=== PATIENT | female | born 1960 | race Caucasian/White ===

== ENCOUNTER 2023-02-23 11:39 | Inpatient (IN) | payer MEDICARE, OTHER ==
[~2023-02-23] VITALS: Ht 152.4 cm; Wt 54.9 kg
[2023-02-24] MEDS ORDERED: MAGNESIUM HYDROXIDE 30 ML UDC PO PRN (01:30)
[2023-02-24] MEDS ORDERED: Z GUARD REMEDY 4 OZ OINT TP PRN (01:30)
[2023-02-24] MEDS ORDERED: MAG HYDROX/AL HYDROX/SIMETH 30 ML UDC PO PRN (01:30)
[2023-02-24] MEDS ORDERED: ZOLPIDEM TARTRATE 5 MG TABLET PO PRN (01:30)
[2023-02-24] MEDS ORDERED: AMPI500C11 PO (01:37)
[2023-02-24] MEDS ORDERED: BUSP5TAB3 PO (01:39)
[2023-02-24] MEDS ORDERED: BENZ0.5T43 PO (01:41)
[2023-02-24] MEDS ORDERED: HALO5TAB PO ×2 (01:43→01:44)
[2023-02-24] MEDS ORDERED: ENOX40DI9 SQ (01:43)
[2023-02-24] MEDS ORDERED: HYDR12.55 PO (01:45)
[2023-02-24] MEDS ORDERED: HYDR50TA61 PO (01:47)
[2023-02-24] MEDS ORDERED: SITA100T PO (01:47)
[2023-02-24] MEDS ORDERED: NITR100C6 PO (01:48)
[2023-02-24] MEDS ORDERED: OLAN5TAB3 PO (01:50)
[2023-02-24] MEDS ORDERED: POTA20TA83 PO (01:53)
[2023-02-24] MEDS ORDERED: FLUO20TA28 PO (01:53)
[2023-02-24 01:54] VITALS: BP 118/74; TEMP 98; O2SAT 98
[2023-02-24] MEDS ORDERED: TRAZ-257 PO (01:55)
[2023-02-24] MEDS ORDERED: LISI20TA30 PO (01:56)
[2023-02-24] MEDS ORDERED: BLOOD SUGAR DIAGNOSTIC 1 EACH STRIP IN ONE (02:00)
[2023-02-24] MEDS ORDERED: INSU100V9 (02:01)
[2023-02-24] MEDS ORDERED: INSU100V7 SQ (02:01)
[2023-02-24] MEDS ORDERED: DEXTROSE 50%-WATER 50 ML DISP.SYRIN IV PRN (04:30)
[2023-02-24 08:00] VITALS: BP 97/76; TEMP 97.6; O2SAT 98
[2023-02-24] MEDS: BLOOD SUGAR DIAGNOSTIC 1 EACH STRIP IN SCH ×4 (08:00→23:01)
[2023-02-24] MEDS: INSULIN REGULAR, HUMAN 100 UNIT/ML 3 ML VIAL SQ PRN (08:43)
[2023-02-24] MEDS: LISINOPRIL (20MG) 20 MG TABLET PO SCH (09:29)
[2023-02-24] MEDS: HYDROCHLOROTHIAZIDE 25 MG TABLET PO SCH (09:30)
[2023-02-24] MEDS: BENZTROPINE MESYLATE (1 MG) 1 MG TABLET PO SCH ×2 (10:46→17:56)
[2023-02-24] MEDS: HALOPERIDOL 5 MG TABLET PO SCH ×2 (10:46→17:00)
[2023-02-24 16:00] VITALS: BP 82/49; TEMP 97.8; O2SAT 99
[2023-02-24] MEDS ORDERED: IV NS 0.9% 1,000 ML IV ONE (17:30)
[2023-02-24 18:46] VITALS: BP 116/63
[2023-02-24 18:50] VITALS: BP 116/63
[2023-02-24 20:00] VITALS: BP 98/64; TEMP 97.8; O2SAT 99
[2023-02-24] MEDS: TRAZODONE 50 MG TABLET PO SCH (22:03)
[2023-02-25 07:53] LABS: BASOPHILS % (AUTO) 0.5 % (0.0-2.0); EOSINOPHILS # (AUTO) 0.1 K/uL (0.0-0.7); EOSINOPHILS % (AUTO) 2.1 % (0.0-6.0); HEMATOCRIT 35 % (33-45); HEMOGLOBIN 12.1 g/dL (11.5-14.8); LYMPHOCYTES # (AUTO) 2.6 K/uL (0.8-4.8); LYMPHOCYTES % (AUTO) 59.7 % (20.0-44.0); MEAN CORPUSCULAR HEMOGLOBIN 30 PG (26.0-33.0); MEAN CORPUSCULAR HGB CONC 35 g/dl (31.0-36.0); MEAN CORPUSCULAR VOLUME 87 fL (82-100); MONOCYTES # (AUTO) 0.4 K/uL (0.1-1.30); MONOCYTES % (AUTO) 8.1 % (2.0-12.0); NEUTROPHILS # (AUTO) 1.3 K/uL (1.8-8.9); NEUTROPHILS % (AUTO) 29.6 % (43.0-81.0); PLATELET COUNT (AUTO) 148 K/uL (150-450); RED BLOOD CELL COUNT(AUTO) 4.01 MIL/uL (4.0-5.2); RED CELL DISTRIBUTION WIDTH 14.5 % (11.5-15.0); WHITE BLOOD COUNT (AUTO) 4.4 K/uL (4.3-11.0)
[2023-02-25 08:00] VITALS: BP 96/60; TEMP 98.4; O2SAT 94
[2023-02-25 08:03] LABS: CALCIUM, SERUM 8.9 mg/dL (8.5-10.1); CREATININE 0.6 mg/dL (0.6-1.3); POTASSIUM 3.5 mmol/L (3.5-5.1)
[2023-02-25] MEDS: BLOOD SUGAR DIAGNOSTIC 1 EACH STRIP IN SCH ×4 (08:15→22:01)
[2023-02-25] MEDS: LISINOPRIL (20MG) 20 MG TABLET PO SCH (08:15)
[2023-02-25] MEDS: HYDROCHLOROTHIAZIDE 25 MG TABLET PO SCH (08:16)
[2023-02-25 08:17] LABS: THYROID STIMULATING HORMONE 2.051 uIU/mL (0.358-3.74)
[2023-02-25] MEDS: BENZTROPINE MESYLATE (1 MG) 1 MG TABLET PO SCH ×2 (08:18→16:14)
[2023-02-25] MEDS: GLUCERNA SHAKE 237 ML CAN PO SCH ×2 (08:18→16:14)
[2023-02-25] MEDS: HALOPERIDOL 5 MG TABLET PO SCH ×2 (08:18→16:14)
[2023-02-25 16:00] VITALS: BP 93/52; TEMP 97.5; O2SAT 96
[2023-02-25] MEDS: MEGESTROL ACETATE SUSP 400 MG/10 ML UDC PO SCH (17:55)
[2023-02-25 18:25] VITALS: BP 105/69
[2023-02-25 20:00] VITALS: BP 105/57; TEMP 98.1; O2SAT 96
[2023-02-25] MEDS: INSULIN REGULAR, HUMAN 100 UNIT/ML 3 ML VIAL SQ PRN (22:08)
[2023-02-25] MEDS: TRAZODONE 50 MG TABLET PO SCH (22:09)
[2023-02-26] MEDS: BLOOD SUGAR DIAGNOSTIC 1 EACH STRIP IN SCH ×4 (07:30→21:11)
[2023-02-26 08:00] VITALS: BP 116/86; TEMP 97.9; O2SAT 95
[2023-02-26] MEDS: HYDROCHLOROTHIAZIDE 25 MG TABLET PO SCH (09:28)
[2023-02-26] MEDS: MEGESTROL ACETATE SUSP 400 MG/10 ML UDC PO SCH (09:28)
[2023-02-26] MEDS: HALOPERIDOL 5 MG TABLET PO SCH ×2 (09:28→16:06)
[2023-02-26] MEDS: GLUCERNA SHAKE 237 ML CAN PO SCH ×2 (09:29→16:06)
[2023-02-26] MEDS: LISINOPRIL (20MG) 20 MG TABLET PO SCH (09:29)
[2023-02-26] MEDS: BENZTROPINE MESYLATE (1 MG) 1 MG TABLET PO SCH ×2 (09:31→16:29)
[2023-02-26] MEDS: INSULIN REGULAR, HUMAN 100 UNIT/ML 3 ML VIAL SQ PRN ×4 (09:37→21:40)
[2023-02-26] MEDS: LORAZEPAM 0.5 MG TABLET PO PRN ×2 (12:39→20:31)
[2023-02-26 16:00] VITALS: BP 127/60; TEMP 98.2; O2SAT 97
[2023-02-26] MEDS: CYANOCOBALAMIN 500 MCG TABLET PO SCH (16:28)
[2023-02-26 20:25] VITALS: BP 124/78; TEMP 98.1; O2SAT 98
[2023-02-26] MEDS: TRAZODONE 50 MG TABLET PO SCH (21:11)
[2023-02-26] MEDS: SIMVASTATIN 10 MG TABLET PO SCH (21:12)
[2023-02-27] MEDS: LORAZEPAM 0.5 MG TABLET PO PRN ×3 (03:22→20:51)
[2023-02-27 07:29] LABS: FOLIC ACID 10.2 ng/mL (>3.0)
[2023-02-27 08:00] VITALS: BP 137/78; TEMP 98.1; O2SAT 98
[2023-02-27] MEDS: BLOOD SUGAR DIAGNOSTIC 1 EACH STRIP IN SCH ×4 (08:18→21:21)
[2023-02-27] MEDS: HALOPERIDOL 5 MG TABLET PO SCH ×2 (08:24→16:13)
[2023-02-27] MEDS: CYANOCOBALAMIN 500 MCG TABLET PO SCH (08:24)
[2023-02-27] MEDS: BENZTROPINE MESYLATE (1 MG) 1 MG TABLET PO SCH ×2 (08:24→16:14)
[2023-02-27] MEDS: MEGESTROL ACETATE SUSP 400 MG/10 ML UDC PO SCH (08:25)
[2023-02-27] MEDS: LISINOPRIL (20MG) 20 MG TABLET PO SCH (08:25)
[2023-02-27] MEDS: HYDROCHLOROTHIAZIDE 25 MG TABLET PO SCH (08:29)
[2023-02-27] MEDS: GLUCERNA SHAKE 237 ML CAN PO SCH ×2 (08:31→16:13)
[2023-02-27] MEDS: INSULIN REGULAR, HUMAN 100 UNIT/ML 3 ML VIAL SQ PRN ×3 (14:36→21:42)
[2023-02-27 16:00] VITALS: BP 123/73; TEMP 98.7; O2SAT 99
[2023-02-27 20:21] VITALS: BP 117/64; TEMP 97.8; O2SAT 96
[2023-02-27] MEDS: SIMVASTATIN 10 MG TABLET PO SCH (21:08)
[2023-02-27] MEDS: TRAZODONE 50 MG TABLET PO SCH (21:16)
[2023-02-28] MEDS: BLOOD SUGAR DIAGNOSTIC 1 EACH STRIP IN SCH ×4 (07:55→22:09)
[2023-02-28 08:00] VITALS: BP 140/87; TEMP 97.6; O2SAT 98
[2023-02-28] MEDS: GLUCERNA SHAKE 237 ML CAN PO SCH ×2 (08:00→17:47)
[2023-02-28] MEDS: MEGESTROL ACETATE SUSP 400 MG/10 ML UDC PO SCH (09:12)
[2023-02-28] MEDS: HYDROCHLOROTHIAZIDE 25 MG TABLET PO SCH (09:13)
[2023-02-28] MEDS: BENZTROPINE MESYLATE (1 MG) 1 MG TABLET PO SCH ×2 (09:13→17:00)
[2023-02-28] MEDS: CYANOCOBALAMIN 500 MCG TABLET PO SCH (09:13)
[2023-02-28] MEDS: LISINOPRIL (20MG) 20 MG TABLET PO SCH (09:13)
[2023-02-28] MEDS: HALOPERIDOL 5 MG TABLET PO SCH ×3 (09:13→17:00)
[2023-02-28 15:30] VITALS: BP 90/63; TEMP 97.5; O2SAT 96
[2023-02-28 16:00] VITALS: BP 90/63; TEMP 97.5; O2SAT 96
[2023-02-28] MEDS: INSULIN REGULAR, HUMAN 100 UNIT/ML 3 ML VIAL SQ PRN ×2 (18:00→22:11)
[2023-02-28] MEDS ORDERED: IV NS 0.9% 500 ML IV ONE (19:00)
[2023-02-28 21:30] VITALS: BP 89/55; TEMP 98.3; O2SAT 98
[2023-02-28] MEDS: SIMVASTATIN 10 MG TABLET PO SCH (21:30)
[2023-02-28] MEDS: TRAZODONE 50 MG TABLET PO SCH (21:30)
[2023-02-28] MEDS ORDERED: IV NS 0.9% 250 ML IV ONE (21:39)
[2023-03-01] MEDS: BLOOD SUGAR DIAGNOSTIC 1 EACH STRIP IN SCH ×4 (07:51→21:30)
[2023-03-01 08:00] VITALS: BP 122/56; TEMP 97.8; O2SAT 98
[2023-03-01] MEDS: BENZTROPINE MESYLATE (1 MG) 1 MG TABLET PO SCH ×2 (08:41→17:33)
[2023-03-01] MEDS: HYDROCHLOROTHIAZIDE 25 MG TABLET PO SCH (08:41)
[2023-03-01] MEDS: CYANOCOBALAMIN 500 MCG TABLET PO SCH (08:41)
[2023-03-01] MEDS: MEGESTROL ACETATE SUSP 400 MG/10 ML UDC PO SCH (08:41)
[2023-03-01] MEDS: HALOPERIDOL 5 MG TABLET PO SCH ×3 (08:41→17:34)
[2023-03-01] MEDS: LISINOPRIL (20MG) 20 MG TABLET PO SCH (08:41)
[2023-03-01] MEDS: GLUCERNA SHAKE 237 ML CAN PO SCH ×2 (10:17→17:34)
[2023-03-01 16:00] VITALS: BP 90/54; TEMP 98.1; O2SAT 97
[2023-03-01] MEDS: INSULIN REGULAR, HUMAN 100 UNIT/ML 3 ML VIAL SQ PRN ×2 (17:38→21:39)
[2023-03-01 20:26] VITALS: BP 85/48; TEMP 99.5; O2SAT 96
[2023-03-01] MEDS: SIMVASTATIN 10 MG TABLET PO SCH (21:10)
[2023-03-01] MEDS: TRAZODONE 50 MG TABLET PO SCH (21:11)
[2023-03-01 23:28] VITALS: BP 86/51; TEMP 98.8; O2SAT 96
[2023-03-02 02:23] VITALS: BP 88/59; TEMP 98.8; O2SAT 96
[2023-03-02] MEDS: BLOOD SUGAR DIAGNOSTIC 1 EACH STRIP IN SCH ×4 (06:50→21:45)
[2023-03-02 08:00] VITALS: BP 100/55; TEMP 97.7; O2SAT 95
[2023-03-02] MEDS: HALOPERIDOL 5 MG TABLET PO SCH ×3 (08:20→16:25)
[2023-03-02] MEDS: MEGESTROL ACETATE SUSP 400 MG/10 ML UDC PO SCH (08:20)
[2023-03-02] MEDS: CYANOCOBALAMIN 500 MCG TABLET PO SCH (08:20)
[2023-03-02] MEDS: BENZTROPINE MESYLATE (1 MG) 1 MG TABLET PO SCH ×2 (08:23→16:25)
[2023-03-02] MEDS: HYDROCHLOROTHIAZIDE 25 MG TABLET PO SCH (08:30)
[2023-03-02] MEDS: LISINOPRIL (20MG) 20 MG TABLET PO SCH (08:30)
[2023-03-02] MEDS: GLUCERNA SHAKE 237 ML CAN PO SCH ×2 (09:21→16:25)
[2023-03-02] MEDS: ESCITALOPRAM OXALATE (10 MG) 10 MG TABLET PO SCH (10:08)
[2023-03-02] MEDS: INSULIN REGULAR, HUMAN 100 UNIT/ML 3 ML VIAL SQ PRN ×3 (12:37→21:47)
[2023-03-02 16:00] VITALS: BP 98/58; TEMP 98; O2SAT 95
[2023-03-02] MEDS: Z GUARD REMEDY 4 OZ OINT TP SCH (16:42)
[2023-03-02 20:00] VITALS: BP 102/62; TEMP 98.2; O2SAT 97
[2023-03-02] MEDS: TRAZODONE 50 MG TABLET PO SCH (21:48)
[2023-03-02] MEDS: SIMVASTATIN 10 MG TABLET PO SCH (21:48)
[2023-03-03] MEDS: BLOOD SUGAR DIAGNOSTIC 1 EACH STRIP IN SCH ×4 (07:01→21:39)
[2023-03-03 08:00] VITALS: BP 145/68; TEMP 97.7; O2SAT 96
[2023-03-03] MEDS: MEGESTROL ACETATE SUSP 400 MG/10 ML UDC PO SCH (08:20)
[2023-03-03] MEDS: CYANOCOBALAMIN 500 MCG TABLET PO SCH (08:21)
[2023-03-03] MEDS: HALOPERIDOL 5 MG TABLET PO SCH ×3 (08:21→16:35)
[2023-03-03] MEDS: HYDROCHLOROTHIAZIDE 25 MG TABLET PO SCH (08:21)
[2023-03-03] MEDS: ESCITALOPRAM OXALATE (10 MG) 10 MG TABLET PO SCH (08:21)
[2023-03-03] MEDS: BENZTROPINE MESYLATE (1 MG) 1 MG TABLET PO SCH ×2 (08:21→16:37)
[2023-03-03] MEDS: LISINOPRIL (20MG) 20 MG TABLET PO SCH (08:21)
[2023-03-03] MEDS: GLUCERNA SHAKE 237 ML CAN PO SCH ×2 (08:22→16:35)
[2023-03-03] MEDS: Z GUARD REMEDY 4 OZ OINT TP SCH ×2 (09:11→16:35)
[2023-03-03] MEDS: INSULIN REGULAR, HUMAN 100 UNIT/ML 3 ML VIAL SQ PRN ×3 (12:17→21:44)
[2023-03-03 16:00] VITALS: BP 110/61; TEMP 97.9; O2SAT 97
[2023-03-03 20:00] VITALS: BP 92/51; TEMP 97.9; O2SAT 95
[2023-03-03] MEDS: SIMVASTATIN 10 MG TABLET PO SCH (21:39)
[2023-03-03] MEDS: TRAZODONE 50 MG TABLET PO SCH (21:39)
[2023-03-04 08:00] VITALS: BP 109/61; TEMP 97.9; O2SAT 96
[2023-03-04] MEDS: BLOOD SUGAR DIAGNOSTIC 1 EACH STRIP IN SCH ×4 (08:00→21:50)
[2023-03-04] MEDS: GLUCERNA SHAKE 237 ML CAN PO SCH ×2 (08:00→16:00)
[2023-03-04] MEDS: MEGESTROL ACETATE SUSP 400 MG/10 ML UDC PO SCH (08:29)
[2023-03-04] MEDS: HALOPERIDOL 5 MG TABLET PO SCH ×3 (08:29→16:00)
[2023-03-04] MEDS: BENZTROPINE MESYLATE (1 MG) 1 MG TABLET PO SCH ×2 (08:29→16:00)
[2023-03-04] MEDS: CYANOCOBALAMIN 500 MCG TABLET PO SCH (08:29)
[2023-03-04] MEDS: ESCITALOPRAM OXALATE (10 MG) 10 MG TABLET PO SCH (08:30)
[2023-03-04] MEDS: LISINOPRIL (20MG) 20 MG TABLET PO SCH (08:31)
[2023-03-04] MEDS: HYDROCHLOROTHIAZIDE 25 MG TABLET PO SCH (08:31)
[2023-03-04] MEDS: Z GUARD REMEDY 4 OZ OINT TP SCH ×2 (08:36→16:02)
[2023-03-04 16:00] VITALS: BP 90/63; TEMP 97.8; O2SAT 100
[2023-03-04] MEDS: INSULIN REGULAR, HUMAN 100 UNIT/ML 3 ML VIAL SQ PRN ×2 (18:27→21:52)
[2023-03-04 20:00] VITALS: BP 105/52; TEMP 98.4; O2SAT 95
[2023-03-04] MEDS: TRAZODONE 50 MG TABLET PO SCH (21:08)
[2023-03-04] MEDS: SIMVASTATIN 10 MG TABLET PO SCH (21:08)
[2023-03-05] MEDS: BLOOD SUGAR DIAGNOSTIC 1 EACH STRIP IN SCH ×4 (07:30→21:58)
[2023-03-05 08:00] VITALS: BP 118/65; TEMP 97.8; O2SAT 97
[2023-03-05] MEDS: GLUCERNA SHAKE 237 ML CAN PO SCH ×2 (08:00→17:00)
[2023-03-05] MEDS: CYANOCOBALAMIN 500 MCG TABLET PO SCH (08:49)
[2023-03-05] MEDS: HALOPERIDOL 5 MG TABLET PO SCH ×3 (08:49→16:45)
[2023-03-05] MEDS: MEGESTROL ACETATE SUSP 400 MG/10 ML UDC PO SCH (08:49)
[2023-03-05] MEDS: HYDROCHLOROTHIAZIDE 25 MG TABLET PO SCH (08:50)
[2023-03-05] MEDS: LISINOPRIL (20MG) 20 MG TABLET PO SCH (08:51)
[2023-03-05] MEDS: ESCITALOPRAM OXALATE (10 MG) 10 MG TABLET PO SCH (08:51)
[2023-03-05] MEDS: BENZTROPINE MESYLATE (1 MG) 1 MG TABLET PO SCH ×2 (08:55→17:59)
[2023-03-05] MEDS: Z GUARD REMEDY 4 OZ OINT TP SCH ×2 (08:56→16:45)
[2023-03-05 15:59] VITALS: BP 120/65; TEMP 98.1; O2SAT 95
[2023-03-05 20:18] VITALS: BP 147/81; TEMP 98.1; O2SAT 98
[2023-03-05] MEDS: SIMVASTATIN 10 MG TABLET PO SCH (21:55)
[2023-03-05] MEDS: TRAZODONE 50 MG TABLET PO SCH (21:55)
[2023-03-05] MEDS: INSULIN REGULAR, HUMAN 100 UNIT/ML 3 ML VIAL SQ PRN (21:58)
[2023-03-06 08:00] VITALS: BP 106/54; TEMP 98.8; O2SAT 98
[2023-03-06] MEDS: GLUCERNA SHAKE 237 ML CAN PO SCH ×2 (08:00→17:00)
[2023-03-06] MEDS: BLOOD SUGAR DIAGNOSTIC 1 EACH STRIP IN SCH ×4 (08:25→21:13)
[2023-03-06] MEDS: MEGESTROL ACETATE SUSP 400 MG/10 ML UDC PO SCH (08:31)
[2023-03-06] MEDS: ESCITALOPRAM OXALATE (10 MG) 10 MG TABLET PO SCH (08:32)
[2023-03-06] MEDS: LISINOPRIL (20MG) 20 MG TABLET PO SCH (08:32)
[2023-03-06] MEDS: CYANOCOBALAMIN 500 MCG TABLET PO SCH (08:32)
[2023-03-06] MEDS: HYDROCHLOROTHIAZIDE 25 MG TABLET PO SCH (08:33)
[2023-03-06] MEDS: HALOPERIDOL 5 MG TABLET PO SCH ×3 (08:33→17:47)
[2023-03-06] MEDS: Z GUARD REMEDY 4 OZ OINT TP SCH ×2 (09:32→17:47)
[2023-03-06] MEDS: BENZTROPINE MESYLATE (1 MG) 1 MG TABLET PO SCH ×2 (09:32→17:47)
[2023-03-06 16:00] VITALS: BP 100/54; TEMP 98.4; O2SAT 99
[2023-03-06 19:43] VITALS: BP 111/71; TEMP 98.3; O2SAT 98
[2023-03-06] MEDS: SIMVASTATIN 10 MG TABLET PO SCH (21:06)
[2023-03-06] MEDS: TRAZODONE 50 MG TABLET PO SCH (21:06)
[2023-03-06] MEDS: INSULIN REGULAR, HUMAN 100 UNIT/ML 3 ML VIAL SQ PRN (21:50)
[2023-03-07 08:00] VITALS: BP 99/59; TEMP 97.7; O2SAT 98
[2023-03-07] MEDS: MEGESTROL ACETATE SUSP 400 MG/10 ML UDC PO SCH (08:52)
[2023-03-07] MEDS: BLOOD SUGAR DIAGNOSTIC 1 EACH STRIP IN SCH ×4 (08:52→21:57)
[2023-03-07] MEDS: ESCITALOPRAM OXALATE (10 MG) 10 MG TABLET PO SCH (08:53)
[2023-03-07] MEDS: HALOPERIDOL 5 MG TABLET PO SCH ×3 (08:53→16:31)
[2023-03-07] MEDS: BENZTROPINE MESYLATE (1 MG) 1 MG TABLET PO SCH ×2 (08:53→16:31)
[2023-03-07] MEDS: CYANOCOBALAMIN 500 MCG TABLET PO SCH (08:53)
[2023-03-07] MEDS: HYDROCHLOROTHIAZIDE 25 MG TABLET PO SCH (08:53)
[2023-03-07] MEDS: LISINOPRIL (20MG) 20 MG TABLET PO SCH (08:54)
[2023-03-07] MEDS: GLUCERNA SHAKE 237 ML CAN PO SCH ×2 (08:56→16:31)
[2023-03-07] MEDS: Z GUARD REMEDY 4 OZ OINT TP SCH ×2 (09:05→16:31)
[2023-03-07 16:00] VITALS: BP 97/57; TEMP 97.6; O2SAT 98
[2023-03-07 20:13] VITALS: BP 105/61; TEMP 99.1; O2SAT 98
[2023-03-07] MEDS: TRAZODONE 50 MG TABLET PO SCH (21:48)
[2023-03-07] MEDS: INSULIN REGULAR, HUMAN 100 UNIT/ML 3 ML VIAL SQ PRN (21:59)
[2023-03-07] MEDS: SIMVASTATIN 10 MG TABLET PO SCH (22:05)
[2023-03-08] MEDS: BLOOD SUGAR DIAGNOSTIC 1 EACH STRIP IN SCH ×4 (06:55→21:22)
[2023-03-08 08:00] VITALS: BP 100/68; TEMP 97.9; O2SAT 98
[2023-03-08] MEDS: GLUCERNA SHAKE 237 ML CAN PO SCH ×2 (08:00→16:25)
[2023-03-08] MEDS: BENZTROPINE MESYLATE (1 MG) 1 MG TABLET PO SCH ×2 (08:42→16:27)
[2023-03-08] MEDS: CYANOCOBALAMIN 500 MCG TABLET PO SCH (08:42)
[2023-03-08] MEDS: HYDROCHLOROTHIAZIDE 25 MG TABLET PO SCH (08:42)
[2023-03-08] MEDS: LISINOPRIL (20MG) 20 MG TABLET PO SCH (08:42)
[2023-03-08] MEDS: ESCITALOPRAM OXALATE (10 MG) 10 MG TABLET PO SCH (08:42)
[2023-03-08] MEDS: HALOPERIDOL 5 MG TABLET PO SCH ×3 (08:43→16:24)
[2023-03-08] MEDS: MEGESTROL ACETATE SUSP 400 MG/10 ML UDC PO SCH (08:43)
[2023-03-08] MEDS: Z GUARD REMEDY 4 OZ OINT TP SCH ×2 (08:43→16:25)
[2023-03-08 16:00] VITALS: BP 107/53; TEMP 98.7; O2SAT 97
[2023-03-08] MEDS: INSULIN REGULAR, HUMAN 100 UNIT/ML 3 ML VIAL SQ PRN ×2 (18:00→21:36)
[2023-03-08 20:15] VITALS: BP 96/53; TEMP 98.2; O2SAT 98
[2023-03-08] MEDS: TRAZODONE 50 MG TABLET PO SCH (21:13)
[2023-03-08] MEDS: SIMVASTATIN 10 MG TABLET PO SCH (21:15)
[2023-03-09] MEDS: BLOOD SUGAR DIAGNOSTIC 1 EACH STRIP IN SCH ×4 (07:46→22:17)
[2023-03-09 08:00] VITALS: BP 112/59; TEMP 98.1; O2SAT 98
[2023-03-09] MEDS: GLUCERNA SHAKE 237 ML CAN PO SCH ×2 (08:59→17:15)
[2023-03-09] MEDS: LISINOPRIL (20MG) 20 MG TABLET PO SCH (09:00)
[2023-03-09] MEDS: HYDROCHLOROTHIAZIDE 25 MG TABLET PO SCH (09:00)
[2023-03-09] MEDS: HALOPERIDOL 5 MG TABLET PO SCH ×3 (09:00→16:13)
[2023-03-09] MEDS: BENZTROPINE MESYLATE (1 MG) 1 MG TABLET PO SCH ×2 (09:00→16:13)
[2023-03-09] MEDS: ESCITALOPRAM OXALATE (10 MG) 10 MG TABLET PO SCH (09:00)
[2023-03-09] MEDS: MEGESTROL ACETATE SUSP 400 MG/10 ML UDC PO SCH (09:00)
[2023-03-09] MEDS: Z GUARD REMEDY 4 OZ OINT TP SCH ×2 (09:03→16:21)
[2023-03-09] MEDS: CYANOCOBALAMIN 500 MCG TABLET PO SCH (09:03)
[2023-03-09 16:00] VITALS: BP 103/67; TEMP 98.6; O2SAT 98
[2023-03-09 20:00] VITALS: BP 132/61; TEMP 98.7; O2SAT 100
[2023-03-09] MEDS: SIMVASTATIN 10 MG TABLET PO SCH (22:13)
[2023-03-09] MEDS: TRAZODONE 50 MG TABLET PO SCH (22:13)
[2023-03-09] MEDS: INSULIN REGULAR, HUMAN 100 UNIT/ML 3 ML VIAL SQ PRN (22:23)
[2023-03-10] MEDS: BLOOD SUGAR DIAGNOSTIC 1 EACH STRIP IN SCH ×4 (07:29→22:00)
[2023-03-10 08:00] VITALS: BP 107/70; TEMP 98.6; O2SAT 99
[2023-03-10] MEDS: GLUCERNA SHAKE 237 ML CAN PO SCH ×2 (08:39→17:05)
[2023-03-10] MEDS: CYANOCOBALAMIN 500 MCG TABLET PO SCH (08:40)
[2023-03-10] MEDS: ESCITALOPRAM OXALATE (10 MG) 10 MG TABLET PO SCH (08:40)
[2023-03-10] MEDS: HYDROCHLOROTHIAZIDE 25 MG TABLET PO SCH (08:40)
[2023-03-10] MEDS: MEGESTROL ACETATE SUSP 400 MG/10 ML UDC PO SCH (08:40)
[2023-03-10] MEDS: BENZTROPINE MESYLATE (1 MG) 1 MG TABLET PO SCH ×2 (08:40→16:24)
[2023-03-10] MEDS: HALOPERIDOL 5 MG TABLET PO SCH ×3 (08:40→16:24)
[2023-03-10] MEDS: LISINOPRIL (20MG) 20 MG TABLET PO SCH (08:41)
[2023-03-10] MEDS: Z GUARD REMEDY 4 OZ OINT TP SCH ×2 (09:01→16:26)
[2023-03-10 16:00] VITALS: BP 112/48; TEMP 98.4; O2SAT 97
[2023-03-10 20:00] VITALS: BP 113/63; TEMP 98; O2SAT 96
[2023-03-10] MEDS: SIMVASTATIN 10 MG TABLET PO SCH (21:43)
[2023-03-10] MEDS: TRAZODONE 50 MG TABLET PO SCH (21:43)
[2023-03-11] MEDS: BLOOD SUGAR DIAGNOSTIC 1 EACH STRIP IN SCH ×4 (07:26→21:36)
[2023-03-11 08:00] VITALS: BP 110/60; TEMP 98.5; O2SAT 97
[2023-03-11] MEDS: GLUCERNA SHAKE 237 ML CAN PO SCH ×2 (08:41→17:20)
[2023-03-11] MEDS: ESCITALOPRAM OXALATE (10 MG) 10 MG TABLET PO SCH (08:41)
[2023-03-11] MEDS: CYANOCOBALAMIN 500 MCG TABLET PO SCH (08:43)
[2023-03-11] MEDS: HALOPERIDOL 5 MG TABLET PO SCH ×3 (08:43→16:22)
[2023-03-11] MEDS: LISINOPRIL (20MG) 20 MG TABLET PO SCH (08:43)
[2023-03-11] MEDS: HYDROCHLOROTHIAZIDE 25 MG TABLET PO SCH (08:43)
[2023-03-11] MEDS: MEGESTROL ACETATE SUSP 400 MG/10 ML UDC PO SCH (08:43)
[2023-03-11] MEDS: BENZTROPINE MESYLATE (1 MG) 1 MG TABLET PO SCH ×2 (08:44→16:22)
[2023-03-11] MEDS: Z GUARD REMEDY 4 OZ OINT TP SCH ×2 (09:18→16:23)
[2023-03-11 16:00] VITALS: BP 126/58; TEMP 97.4; O2SAT 95
[2023-03-11 20:00] VITALS: BP 101/70; TEMP 98.1; O2SAT 97
[2023-03-11] MEDS: SIMVASTATIN 10 MG TABLET PO SCH (21:29)
[2023-03-11] MEDS: TRAZODONE 50 MG TABLET PO SCH (21:29)
[2023-03-11] MEDS: INSULIN REGULAR, HUMAN 100 UNIT/ML 3 ML VIAL SQ PRN (21:47)
[2023-03-12] MEDS: BLOOD SUGAR DIAGNOSTIC 1 EACH STRIP IN SCH ×4 (07:30→21:14)
[2023-03-12] MEDS: GLUCERNA SHAKE 237 ML CAN PO SCH ×2 (07:44→16:03)
[2023-03-12 08:00] VITALS: BP 102/67; TEMP 97.6; O2SAT 98
[2023-03-12] MEDS: ESCITALOPRAM OXALATE (10 MG) 10 MG TABLET PO SCH (08:18)
[2023-03-12] MEDS: HALOPERIDOL 5 MG TABLET PO SCH ×3 (08:18→16:05)
[2023-03-12] MEDS: HYDROCHLOROTHIAZIDE 25 MG TABLET PO SCH (08:19)
[2023-03-12] MEDS: LISINOPRIL (20MG) 20 MG TABLET PO SCH (08:19)
[2023-03-12] MEDS: MEGESTROL ACETATE SUSP 400 MG/10 ML UDC PO SCH (08:19)
[2023-03-12] MEDS: CYANOCOBALAMIN 500 MCG TABLET PO SCH (08:20)
[2023-03-12] MEDS: BENZTROPINE MESYLATE (1 MG) 1 MG TABLET PO SCH ×2 (08:30→16:20)
[2023-03-12] MEDS: Z GUARD REMEDY 4 OZ OINT TP SCH ×2 (09:56→16:04)
[2023-03-12 16:00] VITALS: BP 105/61; TEMP 98.4; O2SAT 98
[2023-03-12 20:36] VITALS: BP 137/74; TEMP 98.4; O2SAT 96
[2023-03-12] MEDS: TRAZODONE 50 MG TABLET PO SCH (21:04)
[2023-03-12] MEDS: SIMVASTATIN 10 MG TABLET PO SCH (21:15)
[2023-03-13] MEDS: BLOOD SUGAR DIAGNOSTIC 1 EACH STRIP IN SCH ×2 (06:54→11:03)
[2023-03-13] MEDS: INSULIN REGULAR, HUMAN 100 UNIT/ML 3 ML VIAL SQ PRN (06:57)
[2023-03-13] MEDS: GLUCERNA SHAKE 237 ML CAN PO SCH (07:53)
[2023-03-13] MEDS: Z GUARD REMEDY 4 OZ OINT TP SCH (07:56)
[2023-03-13 08:00] VITALS: BP 100/66; TEMP 98.6; O2SAT 96
[2023-03-13 09:00] VITALS: BP 100/60
[2023-03-13] MEDS: LISINOPRIL (20MG) 20 MG TABLET PO SCH (09:00)
[2023-03-13] MEDS: HYDROCHLOROTHIAZIDE 25 MG TABLET PO SCH (09:00)
[2023-03-13] MEDS: HALOPERIDOL 5 MG TABLET PO SCH ×2 (09:14→12:46)
[2023-03-13] MEDS: ESCITALOPRAM OXALATE (10 MG) 10 MG TABLET PO SCH (09:14)
[2023-03-13] MEDS: CYANOCOBALAMIN 500 MCG TABLET PO SCH (09:14)
[2023-03-13] MEDS: MEGESTROL ACETATE SUSP 400 MG/10 ML UDC PO SCH (09:14)
[2023-03-13] MEDS: BENZTROPINE MESYLATE (1 MG) 1 MG TABLET PO SCH (09:14)
== END 2023-03-13 13:05 | DRG 885 ==
LOC: GPS 02-24 00:08
PROVIDERS: ADMIT Psychiatry & Neurology Psychiatry; ATTEND Student in an Organized Health Care Education/Training Program
DX: F20.0 Paranoid schizophrenia (principal); N39.0 Urinary tract infection, site not specified; F03.93 Unspecified dementia, unspecified severity, with mood disturbance; R47.01 Aphasia; E11.9 Type 2 diabetes mellitus without complications; I10 Essential (primary) hypertension; E78.5 Hyperlipidemia, unspecified; Z79.4 Long term (current) use of insulin; Z91.148 Patient's other noncompliance with medication regimen for other reason; Z79.84 Long term (current) use of oral hypoglycemic drugs; Z79.899 Other long term (current) drug therapy; Z88.6 Allergy status to analgesic agent
CPT/HCPCS: 36415; 70450-TC; 80048-TC; 80061-TC; 82607-TC; 82962-TC; 83921; 84439-TC; 84443-TC; 85025-TC; 87081-TC; 97116-TC; 97530-TC; A4223; J1815; J7030; J7040; J7050